=== PATIENT | male | born 1950 | race Hispanic/Latino ===

== ENCOUNTER → 2022-09-25 | Outpatient (CLI) | payer OTHER | END | disposition home or self-care (01) | LOC: RAH 11:01 | PROVIDERS: ATTEND Neurological Surgery | DX: M51.16 Intervertebral disc disorders with radiculopathy, lumbar region (principal); M48.061 Spinal stenosis, lumbar region without neurogenic claudication; M48.062 Spinal stenosis, lumbar region with neurogenic claudication; M51.36 Other intervertebral disc degeneration, lumbar region | CPT/HCPCS: 72148 ==

== ENCOUNTER 2022-11-09 09:30 | Observation (INO) | payer OTHER ==
[~2022-11-09] VITALS: Ht 182.9 cm; Wt 111.6 kg
[2022-11-09 10:41] LABS: BASOPHILS % (AUTO) 0.6 % (0.0-5.0); EOSINOPHILS % (AUTO) 1.3 % (0.0-8.0); HEMATOCRIT 37.1 % (42-54); LYMPHOCYTES % (AUTO) 27.6 % (21.0-51.0); MEAN CORPUSCULAR HEMOGLOBIN 27.4 pg (27.0-33.0); MEAN CORPUSCULAR HGB CONC 31.3 g/dL (32.0-36.0); MEAN CORPUSCULAR VOLUME 87.7 fL (79-99); MONOCYTES % (AUTO) 9.1 % (3.0-13.0); NEUTROPHILS % (AUTO) 61.2 % (40.0-77.0); PLATELET COUNT (AUTO) 231 K/uL (130-400); RED BLOOD CELL COUNT(AUTO) 4.23 MIL/uL (4.50-6.20); RED CELL DISTRIBUTION WIDTH 14.2 % (11.0-15.5); WHITE BLOOD COUNT (AUTO) 5.3 K/uL (4.8-10.8)
[2022-11-09 10:52] LABS: CREATININE 0.8 mg/dL (0.5-1.5); POTASSIUM 4.7 mmol/L (3.5-5.1)
[2022-11-09 11:19] VITALS: BP 138/62
[2022-11-10] MEDS ORDERED: AEC81 PO (09:10)
[2022-11-10] MEDS ORDERED: MYCO250C7 PO (09:10)
[2022-11-10] MEDS ORDERED: ERGO500093 PO (09:10)
[2022-11-10] MEDS ORDERED: SULFAMETHOXAZOL PO (09:10)
[2022-11-10] MEDS ORDERED: TAMS-1 PO (09:10)
[2022-11-10] MEDS ORDERED: BACL10TA PO (09:10)
[2022-11-10] MEDS ORDERED: ROSU20TA31 PO (09:10)
[2022-11-10] MEDS ORDERED: ISOS30TA92 PO (09:10)
[2022-11-10] MEDS ORDERED: METO25TA6 PO (09:10)
[2022-11-10] MEDS ORDERED: OLME40TA18 PO (09:10)
[2022-11-10] MEDS ORDERED: GABA300C PO ×2 (09:10)
[2022-11-10] MEDS ORDERED: BUDE10.22 IH (09:10)
[2022-11-10] MEDS ORDERED: LOSA100T58 PO (09:10)
[2022-11-11] VITALS (31 sets, daily range): BP systolic 99–134; BP diastolic 49–79
[2022-11-11] MEDS: CEFAZOLIN SODIUM 2 GM VIAL IVPB SCH ×2 (06:00→08:00)
[2022-11-11] MEDS ORDERED: 0.9%NACL 1000ML 1,000 ML IV ONE (06:25)
[2022-11-11] MEDS ORDERED: LIDOCAINE PF 100MG/5ML (2%) SYRINGE 5ML ONE (06:56)
[2022-11-11] MEDS ORDERED: SUCCINYLCHOLINE CHLORIDE 20 MG/ML 10 ML VIAL ONE (06:56)
[2022-11-11] MEDS ORDERED: PROPOFOL 10 MG/ML 20ML VIAL IV ONE ×2 (06:57→07:45)
[2022-11-11] MEDS ORDERED: DEXAMETHASONE SOD PHOSPHATE 10MG/ML 1ML VIAL ONE ×2 (06:57→07:00)
[2022-11-11] MEDS ORDERED: MIDAZOLAM HCL 1 MG/ML 2ML VIAL ONE (06:57)
[2022-11-11] MEDS ORDERED: NEOSTIGMINE 5MG/5ML SYR IV ONE ×2 (06:57→10:21)
[2022-11-11] MEDS ORDERED: GLYCOPYRROLATE 1 MG/5 ML SYRINGE ONE ×2 (06:57→10:21)
[2022-11-11] MEDS ORDERED: CEFAZOLIN SODIUM 1 GM VIAL ONE (06:58)
[2022-11-11] MEDS ORDERED: MORPHINE PF 100MG/10ML AMP IV ONE (06:58)
[2022-11-11] MEDS ORDERED: FENTANYL CITRATE PF 50 MCG/1 ML 2ML VIAL ONE (06:58)
[2022-11-11] MEDS ORDERED: ROCURONIUM 10MG/1ML SYR 10 MG/ML ML ONE ×2 (06:58→08:22)
[2022-11-11] MEDS ORDERED: ONDANSETRON 4MG INJ ONE ×2 (06:58→07:01)
[2022-11-11] MEDS ORDERED: THROMBIN-JMI 5000 UNIT/VIAL TP ONE (06:59)
[2022-11-11] MEDS: BUPIVACAINE/EPI/PF 0.25% 10ML VIAL IJ SCH (07:00)
[2022-11-11] MEDS ORDERED: ARTIFICIAL TEARS 3.5 GM OINTMENT ONE (07:52)
[2022-11-11] MEDS ORDERED: GENTAMICIN 80 MG/NS 100 ML PB 100 ML IV ONE (08:16)
[2022-11-11] MEDS ORDERED: EPHEDRINE SULFATE 50 MG/ML AMPULE ONE (08:27)
[2022-11-11] MEDS ORDERED: PHENYLEPHRINE HCL 10 MG/ML 1ML VIAL IV ONE (08:35)
[2022-11-11] MEDS ORDERED: PROMETHAZINE HCL 25 MG/ML 1ML AMPULE IM PRN (10:30)
[2022-11-11] MEDS ORDERED: HYDROCODONE/ACETAMINOPHEN 5/325 MG TAB PO PRN (10:30)
[2022-11-11] MEDS ORDERED: BACLOFEN 10 MG TABLET PO PRN (10:30)
[2022-11-11] MEDS ORDERED: SULFAMETHOXAZOL PO SCH (10:30)
[2022-11-11] MEDS ORDERED: MORPHINE 2 MG SYG IVP PRN (10:30)
[2022-11-11] MEDS ORDERED: 0.9%NACL 10ML VIAL IVP PRN (10:30)
[2022-11-11] MEDS: DEXAMETHASONE SOD PHOSPHATE 4 MG/ML 1ML VIAL IVP SCH ×3 (10:30→21:55)
[2022-11-11] MEDS ORDERED: LACTATED RINGERS 1000ML 1,000 ML IV SCH (10:30)
[2022-11-11] MEDS ORDERED: CEFAZOLIN SODIUM 1 GM VIAL IVP SCH (10:30)
[2022-11-11] MEDS ORDERED: ERGOCALCIFEROL (VITAMIN D2) 50,000 UNIT CAPSULE PO SCH (10:30)
[2022-11-11] MEDS: FLUTICASONE/VILANTEROL 1 EACH AER.POW.BA IH SCH (10:33)
[2022-11-11] MEDS: LOSARTAN 100 MG TABLET PO SCH (10:35)
[2022-11-11] MEDS: MYCOPHENOLATE MOFETIL 250 MG CAPSULE PO SCH (20:52)
[2022-11-11] MEDS ORDERED: TAMSULOSIN HCL 0.4 MG CAP.ER.24H PO SCH (21:00)
[2022-11-11] MEDS ORDERED: GABAPENTIN 300 MG CAPSULE PO SCH (21:00)
[2022-11-11] MEDS ORDERED: ATORVASTATIN 40 MG TABLET PO SCH (21:00)
[2022-11-12 00:12] VITALS: BP 130/73
[2022-11-12 04:05] VITALS: BP 137/85
[2022-11-12] MEDS: DEXAMETHASONE SOD PHOSPHATE 4 MG/ML 1ML VIAL IVP SCH ×2 (05:05→11:50)
[2022-11-12 08:00] VITALS: BP 149/77
[2022-11-12] MEDS ORDERED: ISOSORBIDE MONO 30MG SR TAB PO SCH (09:00)
[2022-11-12] MEDS: FLUTICASONE/VILANTEROL 1 EACH AER.POW.BA IH SCH (09:00)
[2022-11-12] MEDS ORDERED: ASPIRIN 81 MG EC TAB PO SCH (09:00)
[2022-11-12] MEDS ORDERED: GABAPENTIN 300 MG CAPSULE PO SCH (09:00)
[2022-11-12] MEDS: LOSARTAN 100 MG TABLET PO SCH (09:00)
[2022-11-12] MEDS ORDERED: LOSARTAN 100 MG TABLET PO SCH (09:00)
[2022-11-12] MEDS ORDERED: METOPROLOL TARTRATE 25 MG TAB PO SCH (09:00)
[2022-11-12] MEDS: MYCOPHENOLATE MOFETIL 250 MG CAPSULE PO SCH (09:31)
[2022-11-12 11:42] VITALS: BP 140/74
== END 2022-11-12 12:50 | disposition home or self-care (01) ==
LOC: EDSTATUS 09:30 → DAHIP 11-11 05:44 → 4AH 11-11 13:01
PROVIDERS: ADMIT Neurological Surgery; ATTEND Neurological Surgery
DX: M48.062 Spinal stenosis, lumbar region with neurogenic claudication (principal); Z20.822 Contact with and (suspected) exposure to COVID-19; E78.00 Pure hypercholesterolemia, unspecified; J84.10 Pulmonary fibrosis, unspecified; Z90.49 Acquired absence of other specified parts of digestive tract; Z79.02 Long term (current) use of antithrombotics/antiplatelets; Z79.899 Other long term (current) drug therapy; Z98.890 Other specified postprocedural states
CPT/HCPCS: 80048; 85025; 87426; 36415; 71045; 63047; 63048 ×2; 96374; 96376 ×2; 96375; 82948 ×6; 72020; A6260; J1100 ×6; G0378 ×24; G0379; A4663; J7120; A4344; J3010; J0690 ×3; J3490 ×5; J2710 ×2; J0330; J7030; J2001; J2250; J2704 ×2; J2274; J2405 ×2; J2370; J7517 ×2; J1580; A4649 ×2; A4215; A4223; A4222; A4221; A4600; A4510

== ENCOUNTER → 2023-02-15 | Outpatient (CLI) | payer OTHER ==
[~2023-02-15] MED LIST: AEC81 PO; BACL10TA PO; BUDE10.22 IH; ERGO500093 PO; GABA300C PO; ISOS30TA92 PO; LOSA100T59 PO; METO25TA6 PO; MYCO250C7 PO; OLME40TA18 PO; ROSU20TA73 PO; SULFAMETHOXAZOL PO; TAMS-1 PO
== END | disposition home or self-care (01) ==
LOC: RAH 08:20
DX: M54.50 Low back pain, unspecified (principal); M25.562 Pain in left knee; G63 Polyneuropathy in diseases classified elsewhere; Z68.33 Body mass index [BMI] 33.0-33.9, adult
CPT/HCPCS: 73560

== ENCOUNTER → 2023-04-09 | Outpatient (CLI) | payer OTHER ==
[2023-04-09 12:03] LABS: BASOPHILS # (AUTO) 0.04 K/uL (0.00-0.20); BASOPHILS % (AUTO) 0.7 % (0.0-5.0); EOSINOPHILS # (AUTO) 0.08 K/uL (0.00-0.70); EOSINOPHILS % (AUTO) 1.4 % (0.0-8.0); HEMATOCRIT 41.9 % (42-54); IMMATURE GRANULOCYTE ABSOLUTE 0.02 K/uL (0-1); LYMPHOCYTES # (AUTO) 1.5 K/uL (1.0-4.8); LYMPHOCYTES % (AUTO) 26.5 % (21.0-51.0); MEAN CORPUSCULAR HEMOGLOBIN 27.1 pg (27.0-33.0); MEAN CORPUSCULAR HGB CONC 30.5 g/dL (32.0-36.0); MEAN CORPUSCULAR VOLUME 88.6 fL (79-99); MONOCYTES # (AUTO) 0.6 K/uL (0.1-1.0); MONOCYTES % (AUTO) 9.5 % (3.0-13.0); NEUTROPHILS # (AUTO) 3.6 K/uL (1.8-7.7); NEUTROPHILS % (AUTO) 61.6 % (40.0-77.0); PLATELET COUNT (AUTO) 268 K/uL (130-400); RED BLOOD CELL COUNT(AUTO) 4.73 MIL/uL (4.50-6.20); RED CELL DISTRIBUTION WIDTH 15.4 % (11.0-15.5); WHITE BLOOD COUNT (AUTO) 5.8 K/uL (4.8-10.8)
[2023-04-09 12:28] LABS: BILIRUBIN,TOTAL 0.4 mg/dL (0.2-1.0); POTASSIUM 4.4 mmol/L (3.5-5.1); TOTAL PROTEIN, SERUM 7.4 g/dL (6.0-8.3)
== END | disposition home or self-care (01) ==
LOC: LAB 08:13
PROVIDERS: ATTEND Internal Medicine Cardiovascular Disease
DX: J84.10 Pulmonary fibrosis, unspecified (principal); I25.10 Atherosclerotic heart disease of native coronary artery without angina pectoris
CPT/HCPCS: 36415; 80053; 80061; 85025

== ENCOUNTER → 2023-06-01 | Outpatient (CLI) | payer OTHER ==
[2023-06-01 12:18] LABS: BASOPHILS # (AUTO) 0.03 K/uL (0.00-0.20); BASOPHILS % (AUTO) 0.5 % (0.0-5.0); EOSINOPHILS % (AUTO) 1.8 % (0.0-8.0); HEMATOCRIT 39.3 % (42-54); IMMATURE GRANULOCYTE ABSOLUTE 0.01 K/uL (0-1); LYMPHOCYTES # (AUTO) 1.7 K/uL (1.0-4.8); LYMPHOCYTES % (AUTO) 29.5 % (21.0-51.0); MEAN CORPUSCULAR HEMOGLOBIN 27.6 pg (27.0-33.0); MEAN CORPUSCULAR HGB CONC 30.8 g/dL (32.0-36.0); MEAN CORPUSCULAR VOLUME 89.5 fL (79-99); MONOCYTES # (AUTO) 0.5 K/uL (0.1-1.0); MONOCYTES % (AUTO) 8.2 % (3.0-13.0); NEUTROPHILS # (AUTO) 3.4 K/uL (1.8-7.7); NEUTROPHILS % (AUTO) 59.8 % (40.0-77.0); PLATELET COUNT (AUTO) 251 K/uL (130-400); RED BLOOD CELL COUNT(AUTO) 4.39 MIL/uL (4.50-6.20); WHITE BLOOD COUNT (AUTO) 5.6 K/uL (4.8-10.8)
[2023-06-01 12:41] LABS: ALBUMIN 3.8 g/dL (3.5-5.0); BILIRUBIN,TOTAL 0.2 mg/dL (0.2-1.0); CREATININE 0.9 mg/dL (0.5-1.5); POTASSIUM 4.5 mmol/L (3.5-5.1)
== END | disposition home or self-care (01) ==
LOC: LAB 05-31 13:48
PROVIDERS: ATTEND Internal Medicine Cardiovascular Disease
DX: I25.10 Atherosclerotic heart disease of native coronary artery without angina pectoris (principal); J84.10 Pulmonary fibrosis, unspecified
CPT/HCPCS: 36415; 80053; 80061; 85025

== ENCOUNTER → 2023-07-14 | Outpatient (CLI) | payer OTHER | END | disposition home or self-care (01) | LOC: RAH 12:46 | PROVIDERS: ATTEND Internal Medicine | DX: M19.012 Primary osteoarthritis, left shoulder (principal); M25.512 Pain in left shoulder | CPT/HCPCS: 73030 ==

== ENCOUNTER → 2023-09-24 | Outpatient (CLI) | payer OTHER | END | disposition home or self-care (01) | LOC: RAH 10:21 | PROVIDERS: ATTEND Internal Medicine | DX: M19.071 Primary osteoarthritis, right ankle and foot (principal); M77.31 Calcaneal spur, right foot; M79.674 Pain in right toe(s) | CPT/HCPCS: 73630 ==

== ENCOUNTER → 2024-09-15 | Outpatient (CLI) | payer OTHER ==
[~2024-09-15] MED LIST changes: -ROSU20TA73 PO; +ROSU20TA98 PO
[2024-09-15 12:30] LABS: BASOPHILS # (AUTO) 0.03 K/uL (0.00-0.20); BASOPHILS % (AUTO) 0.5 % (0.0-5.0); EOSINOPHILS # (AUTO) 0.08 K/uL (0.00-0.70); EOSINOPHILS % (AUTO) 1.5 % (0.0-8.0); HEMATOCRIT 40.2 % (42-54); IMMATURE GRANULOCYTE ABSOLUTE 0.01 K/uL (0-1); LYMPHOCYTES # (AUTO) 1.6 K/uL (1.0-4.8); LYMPHOCYTES % (AUTO) 28.3 % (21.0-51.0); MEAN CORPUSCULAR HEMOGLOBIN 27.7 pg (27.0-33.0); MEAN CORPUSCULAR HGB CONC 30.8 g/dL (32.0-36.0); MEAN CORPUSCULAR VOLUME 89.7 fL (79-99); MONOCYTES # (AUTO) 0.6 K/uL (0.1-1.0); MONOCYTES % (AUTO) 10.7 % (3.0-13.0); NEUTROPHILS # (AUTO) 3.2 K/uL (1.8-7.7); NEUTROPHILS % (AUTO) 58.8 % (40.0-77.0); PLATELET COUNT (AUTO) 257 K/uL (130-400); RED BLOOD CELL COUNT(AUTO) 4.48 MIL/uL (4.50-6.20); RED CELL DISTRIBUTION WIDTH 14.3 % (11.0-15.5); WHITE BLOOD COUNT (AUTO) 5.5 K/uL (4.8-10.8)
[2024-09-15 12:55] LABS: ALBUMIN 3.8 g/dL (3.5-5.0); BILIRUBIN,TOTAL 0.3 mg/dL (0.2-1.0); CREATININE 0.9 mg/dL (0.5-1.3); POTASSIUM 4.7 mmol/L (3.5-5.1); TOTAL PROTEIN, SERUM 7.2 g/dL (6.0-8.3)
== END | disposition home or self-care (01) ==
LOC: LAB 08:38
PROVIDERS: ATTEND Internal Medicine Cardiovascular Disease
DX: I25.10 Atherosclerotic heart disease of native coronary artery without angina pectoris (principal); E78.5 Hyperlipidemia, unspecified
CPT/HCPCS: 36415; 80053; 80061; 85025

== ENCOUNTER → 2025-07-06 | Outpatient (CLI) | payer OTHER ==
[~2025-07-06] MED LIST changes: -TAMS-1 PO; +TAMS-55 PO
--- NOTE | 2025-07-07 02:40 | HMCIMG ---
EXAM: MR Lumbar Spine Without Intravenous Contrast. CLINICAL HISTORY: Radiculopathy, lumbar region. TECHNIQUE: Magnetic resonance imaging of the lumbar spine performed in multiple planes without intravenous contrast. CONTRAST: None. COMPARISON: DX Lumbar Spine 2???3 Views, 06/01/25 MR Lumbar Spine Without Contrast, 09/25/22 FINDINGS: VERTEBRAE No acute fracture. Multilevel degenerative endplate changes. Postsurgical changes noted at L4???L5. ALIGNMENT Lumbar alignment is anatomic with no spondylolisthesis. SPINAL CORD AND CAUDA EQUINA Conus medullaris terminates normally. No abnormal signal in the conus or cauda equina. L1???L2 Diffuse disc disease with postero-central disc protrusion mildly indenting the thecal sac. Mild bilateral neural foraminal stenosis. L2???L3 Disc desiccation with severe central canal stenosis. Axtvdlsf-kv-kwvifm facet arthrosis. Moderate bilateral neural foraminal stenosis with compressive effect on exiting nerve roots. L3???L4 Disc desiccation with moderate central canal stenosis. Moderate facet arthrosis. Moderate neural foraminal stenosis, greater on the right. L4???L5 Postsurgical level demonstrating grade IV disc desiccation. Zkoffgdw-ak-[id number] facet arthrosis. Xvjw-yg-ljjilpjx neural foraminal stenosis with root compression. Central canal now widely patent relative to severe (grade D) stenosis on prior. L5???S1 Diffuse disc degeneration with grade III???IV desiccation. Qmaw-ic-kjlapbxm neural foraminal stenosis. No high-grade central canal stenosis. PARASPINAL SOFT TISSUES Postsurgical scarring in posterior paraspinal soft tissues at L4???L5 with deep midline subcutaneous edema. No drainable collection. ADDITIONAL FINDINGS Multiple simple hepatic cysts in the right lobe, largest measuring 3.2 ??? 2.5 cm. Bilaterally contracted kidneys with diffuse cortical volume loss. IMPRESSION: * Multilevel degenerative lumbar spondylosis with severe central canal stenosis at L2???L3, moderate central canal stenosis at L3???L4, and diffuse foraminal stenosis at multiple levels. * Postoperative improvement at L4???L5, where previously documented grade D severe central canal stenosis now appears decompressed, with residual tczp-qh-solhpmrz foraminal stenosis and root compression. * Stable central canal stenosis at L2???L3 and L3???L4 compared with prior MRI of 09/25/22. * Disc protrusion at L1???L2 with mild bilateral foraminal narrowing. * Postsurgical scarring and deep subcutaneous edema at L4???L5 without collection. * Incidental multiple simple hepatic cysts and bilaterally contracted kidneys with diffuse cortical volume loss. * Radiologic???clinical correlation: Findings reflect chronic multilevel degenerative disc disease with postoperative improvement at L4???L5 and persistent high-grade stenosis proximally. Correlate levels of stenosis with dermatomal distribution of symptoms. /[place]
== END | disposition home or self-care (01) ==
LOC: RAH 12:36
DX: M47.26 Other spondylosis with radiculopathy, lumbar region (principal); M48.061 Spinal stenosis, lumbar region without neurogenic claudication; M51.16 Intervertebral disc disorders with radiculopathy, lumbar region; R60.1 Generalized edema; K76.89 Other specified diseases of liver; M48.07 Spinal stenosis, lumbosacral region; M51.379 Other intervertebral disc degeneration, lumbosacral region without mention of lumbar back pain or lower extremity pain
CPT/HCPCS: 72148